=== PATIENT | male | born 1975 | race Caucasian/White ===

== ENCOUNTER 2016-12-21 20:10 | Inpatient (IN) | payer OTHER, MEDICAID ==
[~2016-12-21] VITALS: Ht 170.2 cm; Wt 60.6 kg
[~2016-12-21 20:10] MED LIST: CEPH250S PO; SULF-168 PO
[2016-12-21] MEDS ORDERED: RANI150T7 PO (20:15)
[2016-12-21] MEDS ORDERED: NAPR250T2 PO (20:15)
[2016-12-21 20:36] LABS: ANION GAP 5 mmol/L (8-16); CALCIUM, TOTAL 9.5 mg/dL (8.8-10.5); CARBON DIOXIDE 32 mmol/L (22-29); CHLORIDE 106 mmol/L (98-107); CREATININE 0.88 mg/dL (0.60-1.30); GLOMERULAR FILTR. RATE CALC > 60 mL/min (>60); POTASSIUM 4.4 mmol/L (3.5-5.1); SODIUM SERUM 143 mmol/L (136-145); UREA NITROGEN, BLOOD 14 mg/dL (7-18)
[2016-12-21 20:37] LABS: BASOPHILS % (AUTO) 0.8 % (0.0-2.0); HEMATOCRIT 40.9 % (41-53); HEMOGLOBIN 13.8 g/dL (13.5-17.5); LYMPHOCYTES % (AUTO) 22.9 % (22.0-44.0); MEAN CORPUSCULAR HEMOGLOBIN 31.5 pg (26.0-34.0); MEAN CORPUSCULAR HGB CONC 33.6 G/dL (31.0-37.0); MEAN CORPUSCULAR VOLUME 94 fL (80-100); MONOCYTES # (AUTO) 0.4 K/uL (0.1-1.0); MONOCYTES % (AUTO) 5.1 % (2.0-9.0); NEUTROPHILS % (AUTO) 69.2 % (40.0-70.0); PLATELET COUNT (AUTO) 321 K/uL (150-450); RED BLOOD CELL COUNT(AUTO) 4.37 MIL/uL (4.50-5.90); RED CELL DISTRIBUTION WIDTH 14.6 % (11.5-14.5); WHITE BLOOD COUNT (AUTO) 8.7 K/uL (4.5-11.0)
[2016-12-21 20:42] LABS: ALANINE AMINOTRANSFERASE 22 U/L (12-78); ALBUMIN 4.2 g/dL (3.4-5.0); ASPARTATE AMINOTRANSFERASE 15 U/L (15-37); BILIRUBIN,TOTAL 0.6 mg/dL (0.1-1.0); TOTAL PROTEIN, SERUM 8.2 g/dL (6.4-8.2)
[2016-12-21] MEDS ORDERED: HALOPERIDOL 5 MG TABLET PO PRN (21:30)
[2016-12-22 02:58] VITALS: BP 115/75
[2016-12-22] MEDS ORDERED: INFLUENZA VIRUS VACCINE QVS 2016-17 (3YR+)/PF 60 MCG/0.5 ML SYRINGE IM ONE (03:45)
[2016-12-22] MEDS ORDERED: PNEUMOCOCCAL VACCINE POLYVALENT 0.5 ML VIAL [PPSV23] IM ONE (05:15)
[2016-12-22] MEDS ORDERED: ACETAMINOPHEN 325 MG TABLET PO PRN (08:15)
[2016-12-22 08:44] VITALS: BP 104/66
[2016-12-22] MEDS: RANITIDINE HCL 150 MG TABLET PO SCH (09:17)
[2016-12-22] MEDS: NAPROXEN 250 MG TABLET PO SCH ×2 (11:25→16:10)
[2016-12-22 16:21] VITALS: BP 112/62
[2016-12-23 00:22] VITALS: BP 110/65
[2016-12-23 08:29] LABS: HEMOGLOBIN A1C 5.4 % (4.5-6.2)
[2016-12-23 08:46] VITALS: BP 125/89
[2016-12-23 08:46] LABS: APPEARANCE,URINE CLEAR (CLEAR); GLUCOSE, URINE (UA) NEGATIVE (NEGATIVE); KETONES,URINE NEGATIVE (NEGATIVE); LEUKOCYTE ESTERASE ,URINE NEGATIVE (NEGATIVE); OCCULT BLOOD,URINE NEGATIVE (NEGATIVE); PH,URINE 6.5 (5.0-8.0); PROTEIN,URINE NEGATIVE (NEGATIVE)
[2016-12-23 08:52] LABS: ADD UA MICROSCOPIC NO
[2016-12-23 09:39] LABS: CHOL/HDL RATIO 3.1 (4.2-7.3); THYROID STIMULATING HORMONE 0.74 uIU/mL (0.36-3.74)
[2016-12-23] MEDS: NAPROXEN 250 MG TABLET PO SCH ×2 (09:42→16:14)
[2016-12-23] MEDS: RANITIDINE HCL 150 MG TABLET PO SCH (09:42)
[2016-12-23] MEDS: SERTRALINE HCL 50 MG TABLET PO SCH (09:42)
[2016-12-23 16:18] VITALS: BP 133/87
[2016-12-24 00:20] VITALS: BP 144/96
[2016-12-24] MEDS: RANITIDINE HCL 150 MG TABLET PO SCH (08:59)
[2016-12-24] MEDS: NAPROXEN 250 MG TABLET PO SCH ×3 (08:59→17:29)
[2016-12-24] MEDS: SERTRALINE HCL 50 MG TABLET PO SCH (08:59)
[2016-12-24 09:06] VITALS: BP 142/92
[2016-12-24 17:20] VITALS: BP 121/80
[2016-12-24] MEDS: ZOLPIDEM TARTRATE 10 MG TABLET PO PRN (20:56)
[2016-12-25 06:19] VITALS: BP 130/86
[2016-12-25 08:06] VITALS: BP 132/78
[2016-12-25] MEDS: NAPROXEN 250 MG TABLET PO SCH ×2 (09:28→16:16)
[2016-12-25] MEDS: RANITIDINE HCL 150 MG TABLET PO SCH (09:28)
[2016-12-25] MEDS: SERTRALINE HCL 50 MG TABLET PO SCH (09:29)
[2016-12-25 16:11] VITALS: BP 136/83
[2016-12-25] MEDS: LORazepam 2 MG TABLET PO PRN (16:16)
[2016-12-26 06:27] VITALS: BP 135/88
[2016-12-26 09:18] VITALS: BP 109/64
[2016-12-26] MEDS: RANITIDINE HCL 150 MG TABLET PO SCH (09:32)
[2016-12-26] MEDS: SERTRALINE HCL 50 MG TABLET PO SCH (09:32)
[2016-12-26] MEDS: NAPROXEN 250 MG TABLET PO SCH ×2 (09:32→16:23)
[2016-12-26 16:19] VITALS: BP 131/85
[2016-12-26] MEDS: ZOLPIDEM TARTRATE 10 MG TABLET PO PRN (20:44)
[2016-12-26] MEDS: LORazepam 2 MG TABLET PO PRN (22:35)
[2016-12-27 00:20] VITALS: BP 135/67
[2016-12-27] MEDS: RANITIDINE HCL 150 MG TABLET PO SCH (08:56)
[2016-12-27] MEDS: SERTRALINE HCL 50 MG TABLET PO SCH (08:56)
[2016-12-27] MEDS: NAPROXEN 250 MG TABLET PO SCH ×2 (08:57→17:22)
[2016-12-27 09:15] VITALS: BP 105/61
[2016-12-27 16:02] VITALS: BP 112/69
[2016-12-27] MEDS ORDERED: PHENYLEPHRINE/SHK LV/MIN OIL/PET 57 GM OINTMENT TP PRN (19:45)
[2016-12-27] MEDS: ZOLPIDEM TARTRATE 10 MG TABLET PO PRN (20:38)
[2016-12-28 00:01] VITALS: BP 119/75
[2016-12-28] MEDS: LORazepam 2 MG TABLET PO PRN (00:04)
[2016-12-28 08:20] VITALS: BP 127/85
[2016-12-28] MEDS: RANITIDINE HCL 150 MG TABLET PO SCH (08:36)
[2016-12-28] MEDS: NAPROXEN 250 MG TABLET PO SCH (08:36)
[2016-12-28] MEDS: SERTRALINE HCL 50 MG TABLET PO SCH (08:36)
[2016-12-28] MEDS ORDERED: SERT25TA PO (09:09)
[2016-12-29] MEDS ORDERED: TRAZ-144 PO (13:12)
== END 2016-12-28 10:10 | disposition home or self-care (01) | DRG 885 ==
LOC: EMS 20:11 → B2S 23:56 → B2X 12-23 12:47
PROC: 3E0234Z Introduction of Serum, Toxoid and Vaccine into Muscle, Percutaneous Approach (ICD-10-PCS; principal; 2016-12-22)
DX: F20.0 Paranoid schizophrenia (principal); F33.2 Major depressive disorder, recurrent severe without psychotic features; R45.851 Suicidal ideations; M19.90 Unspecified osteoarthritis, unspecified site; I10 Essential (primary) hypertension; J44.9 Chronic obstructive pulmonary disease, unspecified; K21.9 Gastro-esophageal reflux disease without esophagitis; F19.10 Other psychoactive substance abuse, uncomplicated; Z71.51 Drug abuse counseling and surveillance of drug abuser; Z79.899 Other long term (current) drug therapy; Z98.890 Other specified postprocedural states; Z93.0 Tracheostomy status; Z91.5 Personal history of self-harm; Z23 Encounter for immunization
CPT/HCPCS: 80307; 83036; 84443; 90471; 99285; G0480

== ENCOUNTER 2017-06-14 21:12 | Emergency (ER) | payer MEDICARE, MEDICAID ==
[~2017-06-14] VITALS: Ht 167.6 cm; Wt 68.0 kg
[~2017-06-14 21:12] MED LIST changes: -CEPH250S PO; +NAPR250T2 PO; +OLAN7.5T2 PO; +SERT50TA12 PO; -SULF-168 PO; +TRAZ-144 PO
[2017-06-14] MEDS ORDERED: OLAN7.5T2 PO (21:16)
[2017-06-14 21:48] LABS: BASOPHILS # (AUTO) 0.09 K/uL (0.00-0.20); EOSINOPHILS # (AUTO) 0.37 K/uL (0.00-0.70); HEMATOCRIT 35.9 % (41-53); HEMOGLOBIN 12.3 g/dL (13.5-17.5); LYMPHOCYTES # (AUTO) 1.9 K/uL (1.0-4.8); MEAN CORPUSCULAR HGB CONC 34.1 G/dL (31.0-37.0); MEAN CORPUSCULAR VOLUME 94 fL (80-100); MONOCYTES # (AUTO) 0.8 K/uL (0.1-1.0); NEUTROPHILS # (AUTO) 6.5 K/uL (1.8-7.7); NEUTROPHILS % (AUTO) 67.2 % (40.0-70.0); PLATELET COUNT (AUTO) 326 K/uL (150-450); RED BLOOD CELL COUNT(AUTO) 3.83 MIL/uL (4.50-5.90); RED CELL DISTRIBUTION WIDTH 13.9 % (11.5-14.5); WHITE BLOOD COUNT (AUTO) 9.6 K/uL (4.5-11.0)
[2017-06-14 21:59] LABS: ANION GAP 9 mmol/L (8-16); CALCIUM, TOTAL 9.4 mg/dL (8.8-10.5); CARBON DIOXIDE 27 mmol/L (22-29); CHLORIDE 102 mmol/L (98-107); CREATININE 1.22 mg/dL (0.60-1.30); GLOMERULAR FILTR. RATE CALC > 60 mL/min (>60); POTASSIUM 3.9 mmol/L (3.5-5.1); SODIUM SERUM 138 mmol/L (136-145); UREA NITROGEN, BLOOD 17 mg/dL (7-18)
[2017-06-14 22:05] LABS: ALANINE AMINOTRANSFERASE 93 U/L (12-78); ALBUMIN 3.7 g/dL (3.4-5.0); ASPARTATE AMINOTRANSFERASE 65 U/L (15-37); BILIRUBIN,TOTAL 0.3 mg/dL (0.1-1.0); TOTAL PROTEIN, SERUM 7.3 g/dL (6.4-8.2)
[2017-06-15 00:12] VITALS: BP 144/83
== END 2017-06-15 00:13 | disposition home or self-care (01) ==
LOC: EMS 21:13
DX: F25.9 Schizoaffective disorder, unspecified (principal); F32.9 Major depressive disorder, single episode, unspecified
CPT/HCPCS: 36415; 80053; 80307; 85025; 99285; G0480

== ENCOUNTER 2017-09-12 17:32 | Emergency (ER) | payer MEDICARE, MEDICAID ==
[~2017-09-12] VITALS: Ht 165.1 cm; Wt 70.0 kg
[~2017-09-12 17:32] MED LIST changes: +ARIP10TA8 PO; +LEVE500T53 PO; -NAPR250T2 PO; -OLAN7.5T2 PO; +PANT40TA25 PO
[2017-09-12] MEDS ORDERED: NAPR-58 PO (17:50)
[2017-09-12] MEDS ORDERED: TRAZ-147 PO (18:26)
[2017-09-12] MEDS ORDERED: HYDROCODONE/ACETAMINOPHEN 10-325 MG TABLET PO ONE (18:30)
[2017-09-12] MEDS ORDERED: LIDOCAINE HCL 1% 10 ML VIAL INJ ONE (18:30)
[2017-09-12] MEDS ORDERED: BACITRACIN 0.9 GM PACKET OINTMENT TP ONE (18:30)
[2017-09-12] MEDS ORDERED: POVIDONE-IODINE 10% 15 ML SOLUTION UD TP ONE (18:30)
[2017-09-12] MEDS ORDERED: BUPIVACAINE HCL/PF 0.5% 10 ML VIAL IM ONE (18:30)
[2017-09-12 20:25] VITALS: BP 119/80
[2017-12-16] MEDS ORDERED: PANT40TA25 PO (05:07)
[2017-12-16] MEDS ORDERED: SERT100T12 PO (05:07)
== END 2017-09-12 20:23 | disposition home or self-care (01) ==
LOC: EMS 17:34
DX: S01.81XA Laceration without foreign body of other part of head, initial encounter (principal); S80.212A Abrasion, left knee, initial encounter; M19.90 Unspecified osteoarthritis, unspecified site; F32.9 Major depressive disorder, single episode, unspecified; F10.10 Alcohol abuse, uncomplicated; F12.10 Cannabis abuse, uncomplicated; V89.9XXA Person injured in unspecified vehicle accident, initial encounter; Y93.55 Activity, bike riding; Y99.9 Unspecified external cause status; Y92.89 Other specified places as the place of occurrence of the external cause
CPT/HCPCS: 12013; 96372; 99283; J3490 ×2

== ENCOUNTER 2017-09-19 11:15 | Emergency (ER) | payer MEDICARE, MEDICAID ==
[~2017-09-19] VITALS: Ht 165.1 cm; Wt 74.1 kg
[~2017-09-19 11:15] MED LIST changes: +NAPR-58 PO; -PANT40TA25 PO; -SERT50TA12 PO; -TRAZ-144 PO; +TRAZ-147 PO
[2017-09-19 12:49] VITALS: BP 123/68
[2017-12-16] MEDS ORDERED: PANT40TA25 PO (05:07)
[2017-12-16] MEDS ORDERED: SERT100T12 PO (05:07)
== END 2017-09-19 12:52 | disposition home or self-care (01) ==
LOC: EMS 11:15
DX: Z48.02 Encounter for removal of sutures (principal); F12.90 Cannabis use, unspecified, uncomplicated
CPT/HCPCS: 99281

== ENCOUNTER 2018-02-06 09:46 | Inpatient (IN) | payer MEDICARE ==
[~2018-02-06] VITALS: Ht 165.1 cm; Wt 62.6 kg
[~2018-02-06 09:46] MED LIST changes: -NAPR-58 PO; +PANT40TA25 PO; +SERT100T12 PO
[2018-02-06 11:25] VITALS: BP 116/77
[2018-02-06] MEDS ORDERED: LORazepam 2 MG TABLET PO PRN (11:45)
[2018-02-06] MEDS ORDERED: ZOLPIDEM TARTRATE 10 MG TABLET PO PRN (11:45)
[2018-02-06] MEDS ORDERED: HALOPERIDOL 5 MG TABLET PO PRN (11:45)
[2018-02-06] MEDS ORDERED: -PHARMACY VACCINE NOTE- MISC ONE (14:45)
[2018-02-06] MEDS ORDERED: ACETAMINOPHEN 325 MG TABLET PO PRN (15:30)
[2018-02-06] MEDS ORDERED: IBUPROFEN 600 MG TABLET PO PRN (15:30)
[2018-02-06 16:06] VITALS: BP 106/73
[2018-02-06] MEDS: LevETIRAcetam 500 MG TABLET PO SCH (17:28)
[2018-02-06] MEDS: TraZODone HCL 50 MG TABLET PO SCH (20:32)
[2018-02-07 00:29] VITALS: BP 101/63
[2018-02-07 07:47] LABS: BASOPHILS % (AUTO) 0.9 % (0.0-2.0); EOSINOPHILS % (AUTO) 5.1 % (1.0-6.0); HEMATOCRIT 35.9 % (41-53); HEMOGLOBIN 12.4 g/dL (13.5-17.5); LYMPHOCYTES # (AUTO) 1.9 K/uL (1.0-4.8); LYMPHOCYTES % (AUTO) 25.8 % (22.0-44.0); MEAN CORPUSCULAR HGB CONC 34.5 G/dL (31.0-37.0); MEAN CORPUSCULAR VOLUME 90 fL (80-100); MONOCYTES # (AUTO) 0.4 K/uL (0.1-1.0); MONOCYTES % (AUTO) 5.5 % (2.0-9.0); NEUTROPHILS # (AUTO) 4.6 K/uL (1.8-7.7); NEUTROPHILS % (AUTO) 62.7 % (40.0-70.0); PLATELET COUNT (AUTO) 282 K/uL (150-450); RED BLOOD CELL COUNT(AUTO) 3.99 MIL/uL (4.50-5.90); RED CELL DISTRIBUTION WIDTH 15.2 % (11.5-14.5)
[2018-02-07] MEDS: PANTOPRAZOLE SODIUM 40 MG DR TABLET PO SCH (08:20)
[2018-02-07] MEDS: ARIPiprazole 10 MG TABLET PO SCH (08:20)
[2018-02-07] MEDS: SERTRALINE HCL 100 MG TABLET PO SCH (08:20)
[2018-02-07] MEDS: LevETIRAcetam 500 MG TABLET PO SCH ×2 (08:20→16:34)
[2018-02-07 08:39] VITALS: BP 104/73
[2018-02-07 08:44] LABS: ALANINE AMINOTRANSFERASE 20 U/L (12-78); ALBUMIN 3.1 g/dL (3.4-5.0); ALKALINE PHOSPHATASE 72 U/L (46-116); ANION GAP 8 mmol/L (8-16); ASPARTATE AMINOTRANSFERASE 19 U/L (15-37); BILIRUBIN,TOTAL 0.3 mg/dL (0.1-1.0); CALCIUM, TOTAL 8.5 mg/dL (8.8-10.5); CARBON DIOXIDE 26 mmol/L (22-29); CHLORIDE 107 mmol/L (98-107); CHOL/HDL RATIO 3.2 (4.2-7.3); CHOLESTEROL 108 mg/dL (131-200); CREATININE 0.73 mg/dL (0.60-1.30); FREE T4 (FREE THYROXINE) 0.78 ng/dL (0.76-1.46); GLOMERULAR FILTR. RATE CALC > 60 mL/min (>60); GLUCOSE,RANDOM 106 mg/dL (70-110); HDL CHOLESTEROL 34 mg/dL (40-60); LDL CHOL (CALC.) 65 mg/dL (0-130); POTASSIUM 3.9 mmol/L (3.5-5.1); SODIUM SERUM 141 mmol/L (136-145); THYROID STIMULATING HORMONE 0.47 uIU/mL (0.36-3.74); TOTAL PROTEIN, SERUM 6.4 g/dL (6.4-8.2); TRIGLYCERIDES 43 mg/dL (15-150); UREA NITROGEN, BLOOD 14 mg/dL (7-18)
[2018-02-07 14:08] LABS: HEMOGLOBIN A1C 5.8 % (4.5-6.2)
[2018-02-07 16:00] VITALS: BP 121/80
[2018-02-07] MEDS: TraZODone HCL 50 MG TABLET PO SCH (20:31)
[2018-02-08 01:16] VITALS: BP 102/67
[2018-02-08 08:23] VITALS: BP 118/74
[2018-02-08] MEDS: LevETIRAcetam 500 MG TABLET PO SCH ×2 (08:26→16:35)
[2018-02-08] MEDS: ARIPiprazole 10 MG TABLET PO SCH (08:26)
[2018-02-08] MEDS: SERTRALINE HCL 100 MG TABLET PO SCH (08:26)
[2018-02-08] MEDS: PANTOPRAZOLE SODIUM 40 MG DR TABLET PO SCH (08:26)
[2018-02-08 09:17] VITALS: BP 116/72
[2018-02-08] MEDS: NAPROXEN 500 MG TABLET PO PRN (09:17)
[2018-02-08 16:04] VITALS: BP 136/86
[2018-02-08] MEDS: TraZODone HCL 50 MG TABLET PO SCH (20:33)
[2018-02-09 00:30] VITALS: BP 120/76
[2018-02-09 08:08] VITALS: BP 125/72
[2018-02-09] MEDS: NAPROXEN 500 MG TABLET PO PRN (08:08)
[2018-02-09] MEDS: SERTRALINE HCL 100 MG TABLET PO SCH (08:08)
[2018-02-09] MEDS: LevETIRAcetam 500 MG TABLET PO SCH ×2 (08:08→16:32)
[2018-02-09] MEDS: ARIPiprazole 10 MG TABLET PO SCH (08:08)
[2018-02-09] MEDS: PANTOPRAZOLE SODIUM 40 MG DR TABLET PO SCH (08:08)
[2018-02-09 16:04] VITALS: BP 123/69
[2018-02-09] MEDS: TraZODone HCL 50 MG TABLET PO SCH (20:37)
[2018-02-10 06:52] VITALS: BP 124/72
[2018-02-10 08:32] VITALS: BP 112/76
[2018-02-10] MEDS: LevETIRAcetam 500 MG TABLET PO SCH (08:44)
[2018-02-10] MEDS: SERTRALINE HCL 100 MG TABLET PO SCH (08:44)
[2018-02-10] MEDS: PANTOPRAZOLE SODIUM 40 MG DR TABLET PO SCH (08:44)
[2018-02-10] MEDS: ARIPiprazole 10 MG TABLET PO SCH (08:44)
[2018-02-10] MEDS ORDERED: SERT100T12 PO (10:13)
[2018-02-10] MEDS ORDERED: TRAZ-144 PO (10:13)
== END 2018-02-10 11:34 | disposition home or self-care (01) | DRG 885 ==
LOC: B2X 12:00
DX: F25.0 Schizoaffective disorder, bipolar type (principal); G40.909 Epilepsy, unspecified, not intractable, without status epilepticus; D64.9 Anemia, unspecified; G89.29 Other chronic pain; K21.9 Gastro-esophageal reflux disease without esophagitis; Z79.899 Other long term (current) drug therapy; Z82.49 Family history of ischemic heart disease and other diseases of the circulatory system; Z91.19 Patient's noncompliance with other medical treatment and regimen; F12.90 Cannabis use, unspecified, uncomplicated; F41.9 Anxiety disorder, unspecified
CPT/HCPCS: 83036; 84439; 84443

== ENCOUNTER 2018-02-25 10:44 | Emergency (ER) | payer MEDICARE, MEDICAID ==
[~2018-02-25] VITALS: Ht 170.2 cm; Wt 74.0 kg
[~2018-02-25 10:44] MED LIST changes: +TRAZ-144 PO; -TRAZ-147 PO
[2018-02-25] MEDS ORDERED: HYDROCODONE/ACETAMINOPHEN 5-325 MG TABLET PO ONE (11:15)
[2018-02-25] MEDS ORDERED: BACITRACIN 0.9 GM PACKET OINTMENT TP ONE (11:30)
[2018-02-25] MEDS ORDERED: PERTUSS(ACELL),DIPH,TET VAC/PF 0.5 ML VIAL IM ONE (11:30)
[2018-02-25 12:25] VITALS: BP 111/85
== END 2018-02-25 12:40 | disposition home or self-care (01) ==
LOC: EMS 10:49
DX: S01.01XA Laceration without foreign body of scalp, initial encounter (principal); F12.90 Cannabis use, unspecified, uncomplicated; W22.8XXA Striking against or struck by other objects, initial encounter; Y93.89 Activity, other specified; Y92.89 Other specified places as the place of occurrence of the external cause; Y99.8 Other external cause status
CPT/HCPCS: 12002; 90471; 90715; 99283

== ENCOUNTER 2018-03-04 10:58 | Emergency (ER) | payer MEDICARE, MEDICAID ==
[~2018-03-04] VITALS: Ht 165.1 cm; Wt 65.0 kg
[2018-03-04 11:21] VITALS: BP 129/95
== END 2018-03-04 11:56 | disposition home or self-care (01) ==
LOC: EMS 11:00
DX: Z48.02 Encounter for removal of sutures (principal); F12.90 Cannabis use, unspecified, uncomplicated
CPT/HCPCS: 99281

== ENCOUNTER → 2018-09-07 | Outpatient (CLI) | payer MEDICARE, MEDICAID ==
[~2018-09-07] MED LIST changes: -TRAZ-144 PO; +TRAZ-219 PO
[2018-09-07 17:06] LABS: BASOPHILS % (AUTO) 0.7 % (0.0-2.0); EOSINOPHILS % (AUTO) 2.4 % (1.0-6.0); HEMATOCRIT 39.6 % (41-53); HEMOGLOBIN 13.4 g/dL (13.5-17.5); LYMPHOCYTES # (AUTO) 1.4 K/uL (1.0-4.8); LYMPHOCYTES % (AUTO) 22.5 % (22.0-44.0); MEAN CORPUSCULAR HGB CONC 33.9 G/dL (31.0-37.0); MEAN CORPUSCULAR VOLUME 95 fL (80-100); MONOCYTES # (AUTO) 0.4 K/uL (0.1-1.0); NEUTROPHILS # (AUTO) 4.4 K/uL (1.8-7.7); NEUTROPHILS % (AUTO) 68.4 % (40.0-70.0); PLATELET COUNT (AUTO) 285 K/uL (150-450); RED BLOOD CELL COUNT(AUTO) 4.18 MIL/uL (4.50-5.90); RED CELL DISTRIBUTION WIDTH 14.7 % (11.5-14.5)
[2018-09-07 17:25] LABS: ALANINE AMINOTRANSFERASE 22 U/L (12-78); ALKALINE PHOSPHATASE 103 U/L (46-116); ANION GAP 4 mmol/L (8-16); ASPARTATE AMINOTRANSFERASE 15 U/L (15-37); BILIRUBIN,TOTAL 0.7 mg/dL (0.1-1.0); CALCIUM, TOTAL 9.3 mg/dL (8.8-10.5); CARBON DIOXIDE 32 mmol/L (22-29); CHLORIDE 107 mmol/L (98-107); CHOLESTEROL 136 mg/dL (131-200); CREATININE 0.67 mg/dL (0.60-1.30); GLOMERULAR FILTR. RATE CALC > 60 mL/min (>60); GLUCOSE,RANDOM 90 mg/dL (70-110); HDL CHOLESTEROL 45 mg/dL (40-60); LDL CHOL (CALC.) 85 mg/dL (0-130); POTASSIUM 5.6 mmol/L (3.5-5.1); SODIUM SERUM 143 mmol/L (136-145); THYROID STIMULATING HORMONE 0.64 uIU/mL (0.36-3.74); TOTAL PROTEIN, SERUM 7.6 g/dL (6.4-8.2); TRIGLYCERIDES 32 mg/dL (15-150); UREA NITROGEN, BLOOD 21 mg/dL (7-18)
== END | disposition home or self-care (01) ==
LOC: LABMN 09:30
DX: F25.9 Schizoaffective disorder, unspecified (principal); J44.9 Chronic obstructive pulmonary disease, unspecified; M19.90 Unspecified osteoarthritis, unspecified site; I10 Essential (primary) hypertension
CPT/HCPCS: 84443

== ENCOUNTER → 2018-10-02 | Outpatient (CLI) | payer MEDICARE, MEDICAID ==
[2018-10-03 12:37] LABS: ALANINE AMINOTRANSFERASE 27 U/L (12-78); ALBUMIN 4.3 g/dL (3.4-5.0); ALKALINE PHOSPHATASE 119 U/L (46-116); ANION GAP 5 mmol/L (8-16); ASPARTATE AMINOTRANSFERASE 22 U/L (15-37); BILIRUBIN,TOTAL 0.8 mg/dL (0.1-1.0); CALCIUM, TOTAL 9.3 mg/dL (8.8-10.5); CARBON DIOXIDE 31 mmol/L (22-29); CHLORIDE 101 mmol/L (98-107); CREATININE 0.73 mg/dL (0.60-1.30); GLOMERULAR FILTR. RATE CALC > 60 mL/min (>60); POTASSIUM 4.8 mmol/L (3.5-5.1); SODIUM SERUM 137 mmol/L (136-145); TOTAL PROTEIN, SERUM 8.2 g/dL (6.4-8.2); UREA NITROGEN, BLOOD 18 mg/dL (7-18)
[2018-10-03 12:58] LABS: GLUCOSE,RANDOM 36 mg/dL (70-110)
== END | disposition home or self-care (01) ==
LOC: LABMN 10:30
DX: F25.0 Schizoaffective disorder, bipolar type (principal)

== ENCOUNTER 2020-01-29 10:06 | Emergency (ER) | payer MEDICARE, MEDICAID ==
[~2020-01-29] VITALS: Ht 165.1 cm; Wt 65.9 kg
[~2020-01-29 10:06] MED LIST changes: -TRAZ-219 PO; +TRAZ-252 PO
[2020-01-29 10:07] VITALS: BP 129/90
[2020-01-29] MEDS ORDERED: KETOROLAC TROMETHAMINE 30 MG/ML VIAL IM ONE (10:45)
== END 2020-01-29 12:05 | disposition home or self-care (01) ==
LOC: EMS 10:06
DX: S92.421A Displaced fracture of distal phalanx of right great toe, initial encounter for closed fracture (principal); F32.9 Major depressive disorder, single episode, unspecified; F12.90 Cannabis use, unspecified, uncomplicated; V23.4XXA Motorcycle driver injured in collision with car, pick-up truck or van in traffic accident, initial encounter; Y93.89 Activity, other specified; Y92.89 Other specified places as the place of occurrence of the external cause; Y99.8 Other external cause status
CPT/HCPCS: 73660; 96372; 99283; J1885